=== PATIENT | male | born 1970 | race Caucasian/White ===

== ENCOUNTER 2019-02-07 07:52 | Outpatient (CLI) | payer OTHER ==
[~2019-02-07 07:52] MED LIST: DEXILANT30 MG; KETO10TA2 PO
== END 2019-02-07 07:55 | disposition home or self-care (01) ==
LOC: SONOGRAMA 07:52
DX: E04.1 Nontoxic single thyroid nodule (principal)

== ENCOUNTER 2021-06-10 07:49 | Outpatient (CLI) | payer OTHER | END 2021-06-10 07:52 | disposition home or self-care (01) | LOC: SONOGRAMA 07:49 | PROVIDERS: ATTEND Pathology Anatomic Pathology & Clinical Pathology | DX: E04.1 Nontoxic single thyroid nodule (principal) ==